=== PATIENT | male | born 2000 | race Caucasian/White ===

== ENCOUNTER 2021-05-23 11:05 | Emergency (ER) | payer OTHER, SELFPAY ==
[2021-05-23 12:01] VITALS: BP 136/64; PULSE 95; RESP 14; TEMP 37.2; O2SAT 99; BMI 20.5
[2021-05-23 12:39] LABS: Strep Scrn Group A (Rapid) Negative (Negative)
--- NOTE | 2021-05-23 12:49 | HMH.EDUTC ---
[facility] [place] Clinical Impression: Pharyngitis Qualifiers: Pharyngitis/tonsillitis etiology: unspecified etiology Qualified Code(s): J02.9 - Acute pharyngitis, unspecified Sinusitis Qualifiers: Sinusitis location: unspecified location Chronicity: acute Recurrence: non-recurrent Qualified Code(s): J01.90 - Acute sinusitis, unspecified Disposition: Home, Self-Care Condition on Discharge: Good Instructions: Sore Throat, DI for Pharyngitis/Tonsillopharyngitis -- Adult, DI for Sinusitis Additional Instructions: Drink plenty of fluids. Take tylenol or ibuprofen for pain or fever. Take the medications as directed. Follow up with your regular doctor. GO TO THE ER FOR ANY WORSENING SYMPTOMS Throw your tooth brush away and get a new one. Prescriptions: Brompheniramine/Pseudoephed/Dm [Bromfed Dm Cough Syrup] 5 ml PO Q6HP PRN #240 ml PRN Reason: Cough Transmission Status: Received by [id number] Amoxicillin [Amoxicillin 500mg Tab] 500 mg PO TID 10 Days #30 tab Transmission Status: Received by [id number] predniSONE [Deltasone 10mg tablet] 10 mg PO BID 3 Days #6 tab Transmission Status: Received by [id number] Referrals: Provider,Referral, MD [Primary Care Provider] - Forms: Work/School Release Time of Disposition: 13:03 Medical Decision Making - Medical Records Medical records reviewed: No: I reviewed the patient's medical records. - Aubrey Inquiry Pt receiving controlled substance: No Vital Signs: 05/23/21 12:01 05/23/21 13:35 Temperature 99 F 99 F Temperature Source Oral Pulse Rate 95 H Pulse Rate [Left] 95 H Respiratory Rate 14 14 Blood Pressure 136/64 Blood Pressure [Right Arm] 136/64 Blood Pressure Mean [Right Arm] 88 02 Sat by Pulse Oximetry 99 - Lab Data Lab results reviewed: Yes: I reviewed the patient's lab results. Lab Results 05/23/21 12:00: Group A Strep Rapid Negative Orders (Tests/Meds): ORDERS Category Date Time Status Strep Screen Confirmation Stat Micro 05/23/21 12:00 [place] [facility] [place] - General Stated complaint: sore throat, cough, fever Time Seen by Provider: 05/23/21 12:49 Mode of Arrival: Ambulatory Source of Information: Patient Limitations: No Limitations Description of Symptoms (Recalled from Triage Doc. by RN): pt c/o a sore throat and fever x2 days. pt was positive for covid last week. HEENT Symptoms (Recalled from RN notes): Yes (sore throat) Resp Symptoms (Recalled from RN notes): No Skin Symptoms (Recalled from RN notes): No MS Symptoms (Recalled from RN notes): No Functional Status (Recalled from RN notes): wnl - History of Present Illness Provider Complaint: He states that for the past 2 days he has had a worsening sore throat, chills, sinus congestion and he has felt bad. He denies fever. He had covid-19 a little over 2 weeks ago and he got completely better from that. He had been vaccinated against covid-19. - Related Data Previous Rx's Medication Instructions Recorded Amoxicillin [Amoxicillin 500mg Tab] 500 mg PO TID 10 Days #30 tab 05/23/21 Brompheniramine/Pseudoephed/Dm 5 ml PO Q6HP PRN #240 ml 05/23/21 [Bromfed Dm Cough Syrup] predniSONE [Deltasone 10mg tablet] 10 mg PO BID 3 Days #6 tab 05/23/21 Allergies Allergy/AdvReac Type Severity Reaction Status Date / Time No Known Allergies Allergy Verified 05/23/21 12:04 - Worker's Comp Is this a Worker's Comp case?: No [facility] [place] History - Hepatitis A Screen Drug use history?: No High risk sexual behaviors?: No History of sexually transmitted infection?: No Currently employed?: No Childcare worker?: No Do you have indoor plumbing?: Yes Do you have electricity?: Yes Attestation statement:: This patient has been screened for Hepatitis A risk factors. I have reviewed the patient's past medical history: Yes ROS Obtained: Yes All systems reviewed & no additional complaints - Constitutional Constitutional: Reports
[2021-05-23 13:35] VITALS: BP 136/64; PULSE 95; RESP 14; TEMP 37.2
== END 2021-05-23 13:36 | disposition home or self-care (01) ==
PROVIDERS: Emergency Provider Nurse Practitioner Family
DX: J01.90 Acute sinusitis, unspecified (principal); J02.9 Acute pharyngitis, unspecified
CPT/HCPCS: 87430; 99203; G0463

== ENCOUNTER → 2021-12-27 13:11 | Outpatient (CLI) | payer OTHER, SELFPAY ==
[2021-12-27 15:18] LABS: Alanine Aminotransferase 83 U/L (12-78); Albumin Level 4.9 g/dl (3.5-5.0); Albumin/Globulin Ratio 1.9 (1.1-1.8); Alkaline Phosphatase 98 U/L (38-126); Aspartate Amino Transferase 52 U/L (17-59); Bilirubin,Total 1.1 mg/dl (0.2-1.3); Blood Urea Nitrogen 11 mg/dl (9-20); Calcium 9.7 mg/dl (8.4-10.2); Carbon Dioxide 29 mmol/L (22.0-30.0); Chloride 103 mmol/L (98-107); Chol/HDL Ratio 3.3 (1-3.5); Cholesterol 154 mg/dl (140-200); Estimated Glomerular Filt Rate 107 ml/min (>60); GFR (African American) 129 ML/MIN (>60); Globulin 2.6 g/dL (1.3-3.2); Glucose 91 mg/dl (74-100); HDL Cholesterol 46 mg/dl (40-60); Sodium 139 mmol/L (136-145); Total Protein,Serum 7.5 g/dl (6.3-8.2); Triglycerides 89 mg/dl (30-150); VLDL Cholesterol 18 mg/dL (0-40)
[2021-12-27 15:29] LABS: Direct LDL Cholesterol 80.98 mg/dL (100-129)
[2021-12-27 15:35] LABS: 25-OH Vitamin D, Total 36.2 ng/mL (30-100); Basophils % 0.8 % (0.1-2.0); Eosinophils # 0.1 K/mm3 (0.0-0.4); Eosinophils % 0.9 % (0.1-12.0); Hematocrit 49.5 % (42.0-52.0); Hemoglobin 16.4 g/dL (14.1-18.0); Lymphocytes # 2.7 K/mm3 (0.7-4.5); Lymphocytes % 52.6 % (10-50); Mean Corpuscular HGB Conc 33.1 g/dL (31.8-35.4); Mean Corpuscular Hemoglobin 31.6 pg (27.0-31.2); Mean Corpuscular Volume 95.4 fl (80-94); Mean Platelet Volume 9.6 fl (7.4-10.4); Monocytes # 0.3 K/mm3 (0.1-1.0); Neutrophils % 39.6 % (37.0-80.0); Platelet Count 255 K/mm3 (142-424); Red Blood Count 5.18 M/mm3 (4.60-6.20); Red Cell Distribution Width 12.1 % (11.5-17.5); White Blood Count 5.1 K/mm3 (4.8-10.8)
[2021-12-27 15:36] LABS: Free Thyroxine Index 2.4 ug/dL (5.93-13.13); T4 (Thyroxine) 7.9 ug/dl (5.53-11.0); Triiodothryronine (T3) Uptake 31 % (23.5-40.5)
[2021-12-27 15:38] LABS: MANUAL DIFFERENTIAL MANUAL DIFFERENTIAL (MANUAL DIFF)
[2021-12-27 16:06] LABS: Vitamin B12 429 pg/mL (239-931)
[2021-12-27 18:06] LABS: Lymphocytes % 51 % (10-50); Monocytes % 4 % (2-9); Neutrophils % 45 % (42-76); Platelet Estimate Normal; RBC Morphology Normal; Total Cells Counted 100
[2022-01-01 22:07] LABS: Testosterone, Total, LC/MS 651.4 ng/dL (264.0-916.0); Testosterone,Free 19.6 pg/mL (9.3-26.5)
== END ==
PROVIDERS: PCP Internal Medicine Adolescent Medicine; Visit Provider Internal Medicine Adolescent Medicine
DX: R94.6 Abnormal results of thyroid function studies (principal); R53.81 Other malaise; R53.83 Other fatigue
CPT/HCPCS: 36415; 80053; 80061; 82306; 82607; 84402; 84403; 84436; 84443; 84479; 85007; 85025

== ENCOUNTER 2022-10-04 18:05 | Emergency (ER) | payer OTHER, SELFPAY ==
[2022-10-04 18:07] VITALS: BP 133/78; PULSE 124; RESP 18; TEMP 36.7; O2SAT 100; BMI 18.4
--- NOTE | 2022-10-04 18:15 | EXP.UTC ---
Discharge Plan Disposition Patient Disposition: Home, Self-Care Condition: Good Prescriptions Prescriptions: New diphenhydramine HCl [Diphenhydramine HCl] 25 mg capsule 25 mg PO Q6HP PRN (Reason: Itching) Qty: 30 0RF triamcinolone acetonide 0.1 % cream 1 applic topical BID PRN (Reason: itching) Qty: 30 0RF methylprednisolone 4 mg Tablets,Dose Pack 4 mg PO DIRECTED Qty: 21 0RF No Action vilazodone [Viibryd] 40 mg tablet 40 mg PO DAILY Qty: 30 1RF Rx Instructions: must administer with a meal/food atomoxetine [Strattera] 40 mg capsule 40 mg PO DAILY Qty: 30 1RF Referrals Follow up/Referrals: Howard Bucio MD [Primary Care Provider] - See instructions Activity Restrictions/Add. Instructions Additional Instructions/Restrictions: Try to identify and avoid contact with the offending substance. Don't start the oral steroids until tomorrow. The diphenhydramine (benedryl) will make you drowsy, so don't drive or operate heavy machinery after taking it. Don't put the topical steroids (triamcinolone) on your face or your groin. Follow up with your regular doctor. GO TO THE ER FOR ANY WORSENING SYMPTOMS OR CONCERNS Clinical Impressions Clinical Impression: Allergic reaction Instructions Patient Instructions: DI for General Allergic Reactions Discharge ED Provider: Francisco Scanlon [facility] General Stated complaint: poss allergic reaction Time Seen by Provider: 10/04/22 18:15 History of Present Illness Provider Complaint: He states that he has had a generalized rash since yesterday. He denies any contact with known allergens (such as poison kenisha). He has used a new body wash that he thinks may have caused his symptoms. He denies any swelling of his lips or mouth. He denies any shortness of breath and/or chest pain. Related Data Previous Rx's Medication Instructions Recorded vilazodone 40 mg tablet (Viibryd) 40 mg PO DAILY #30 tabs 01/08/22 atomoxetine 40 mg capsule 40 mg PO DAILY #30 caps 08/28/22 (Strattera) diphenhydramine HCl 25 mg capsule 25 mg PO Q6HP PRN Itching #30 caps 10/04/22 methylprednisolone 4 mg tablets in 4 mg PO DIRECTED #21 tabs 10/04/22 a dose pack triamcinolone acetonide 0.1 % 1 applic topical BID PRN itching 10/04/22 topical cream #30 grams Allergies Allergy/AdvReac Type Severity Reaction Status Date / Time No Known Allergies Allergy Verified 05/09/22 10:41 [facility] Disclaimer: The information contained in this section may have been updated after the patient was seen, as this information can be updated by other users. Medical History Attention deficit disorder (ADD) in adult Generalized anxiety disorder Social History Smoking Status: Never smoker alcohol intake: current substance use type: denies use current occupational status: employed Travel in the last 8 weeks: None number of children: 0 ROS Obtained: Yes All systems reviewed & no additional complaints except as documented Constitutional Constitutional: Denies chills and Denies fever(s) Eyes Eyes: Denies eye discharge ENT Ears, Nose, Mouth, and Throat: Denies dizziness, Denies otalgia and Denies sore throat Cardiovascular Cardiovascular: Denies chest pain Respiratory Respiratory: Denies shortness of breath, Denies chest congestion, Denies cough, Denies stridor and Denies wheezing Gastrointestinal Gastrointestingal: Denies nausea or vomiting Musculoskeletal Musculoskeletal: Reports system reviewed and no additional complaints, except as documented and Denies arthralgias Integumentary/Breasts Skin/Breast: Reports as per HPI, Denies redness, Reports rash and Denies wounds Neurologic Neurologic: Denies dizziness and Denies paresthesias Allergic/Immunologic Allergic/Immunologic: Denies wheezing Physical Exam General General appearance: alert and i
[2022-10-04 18:43] VITALS: BP 133/78; PULSE 124; RESP 18; TEMP 36.7; O2SAT 100
== END 2022-10-04 18:44 | disposition home or self-care (01) ==
PROVIDERS: Emergency Provider Nurse Practitioner Family; PCP Internal Medicine Adolescent Medicine
DX: T78.40XA Allergy, unspecified, initial encounter (principal); R21 Rash and other nonspecific skin eruption; F41.1 Generalized anxiety disorder; F90.9 Attention-deficit hyperactivity disorder, unspecified type
CPT/HCPCS: 96372; 99212; 99214; G0463

== ENCOUNTER → 2022-11-24 18:50 | Outpatient (CLI) | payer OTHER, SELFPAY ==
[2022-11-24 19:14] VITALS: BMI 16.1
== END ==
PROVIDERS: PCP Internal Medicine Adolescent Medicine; Visit Provider Nurse Practitioner
DX: Z11.1 Encounter for screening for respiratory tuberculosis (principal)
CPT/HCPCS: 86580

== ENCOUNTER → 2022-12-11 12:11 | Outpatient (CLI) | payer OTHER, SELFPAY ==
[2022-12-11 13:23] LABS: Free T4 (Free Thyroxine) 1.07 ng/dl (0.78-2.19)
[2022-12-11 13:35] LABS: Thyroid Stimulating Hormone 0.98 uIU/mL (0.465-4.68)
[2022-12-14 11:25] LABS: Antinuclear Antibodies (ANA) NEGATIVE
== END ==
PROVIDERS: PCP Internal Medicine Adolescent Medicine; Visit Provider Internal Medicine
DX: E03.9 Hypothyroidism, unspecified (principal); D89.89 Other specified disorders involving the immune mechanism, not elsewhere classified
CPT/HCPCS: 36415; 84439; 84443; 86038

== ENCOUNTER → 2022-12-25 16:14 | Outpatient (CLI) | payer OTHER, SELFPAY ==
[2022-12-25 16:28] LABS: Microscopic, Urine URINE MICROSCOPIC (MICROSCOPIC)
[2022-12-25 16:46] LABS: Appearance,Urine CLEAR (Clear); Blood, Urine Negative (Negative); Color,Urine YELLOW (Yellow); Glucose,Urine (UA) Negative (Negative); Ketones,Urine 3+ (Negative); Leukocyte Esterase,Urine Negative (Negative); Nitrate,Urine Negative (Negative); Protein,Urine Negative (Negative); Specific Gravity, Urine 1.025 (1.005-1.030); Urobilinogen,Urine 0.2 EU/dl (0.2)
[2022-12-25 16:55] LABS: Bilirubin,Urine Negative (Negative)
[2022-12-25 17:04] LABS: Mucus,Urine 2+ /lpf; Squamous Epithelial Cell,Urine Occasional #/hpf (0-5); WBC,Urine Occasional #/hpf (0-3)
== END ==
PROVIDERS: Nurse Practitioner; PCP Internal Medicine; Visit Provider Internal Medicine
DX: M54.50 Low back pain, unspecified (principal)
CPT/HCPCS: 81001

== ENCOUNTER → 2022-12-27 09:22 | Outpatient (CLI) | payer OTHER, SELFPAY ==
--- NOTE | 2022-12-27 09:26 | XR_ITS ---
PROCEDURE INFORMATION: Exam: XR Entire Spine Exam date and time: 12/27/2022 9:27 AM Age: 22 years old Clinical indication: Low back pain; Additional info: Patient reports HX of being told he has scoliosis TECHNIQUE: Imaging protocol: XR of the entire spine. Evaluation for scoliosis or surgical evaluation. Views: 2 or 3 views. COMPARISON: No relevant prior studies available. FINDINGS: Bones/joints: There is a 16 degree dextroscoliosis of the thoracic spine centered at T4 and a 24 degree levoscoliosis of the thoracic spine centered at T10. A compensatory 14 degree dextroconvex curvature of the lumbar spine centered at L4 is noted. 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
== END ==
PROVIDERS: PCP Internal Medicine; Visit Provider Internal Medicine
DX: Z13.828 Encounter for screening for other musculoskeletal disorder (principal); Z87.39 Personal history of other diseases of the musculoskeletal system and connective tissue; G43.909 Migraine, unspecified, not intractable, without status migrainosus; M41.86 Other forms of scoliosis, lumbar region
CPT/HCPCS: 72081

== ENCOUNTER → 2022-12-30 12:25 | Outpatient (CLI) | payer OTHER, SELFPAY ==
[2022-12-30 13:49] VITALS: BMI 20.8
== END ==
PROVIDERS: PCP Internal Medicine; Visit Provider Internal Medicine
DX: R63.6 Underweight (principal); Z68.1 Body mass index [BMI] 19.9 or less, adult
CPT/HCPCS: 97802

== ENCOUNTER → 2023-01-10 08:59 | Outpatient (CLI) | payer OTHER, SELFPAY ==
[2023-01-12 13:52] LABS: Tissue Transglutaminase IgA Ab <2 U/mL (0-3); Tissue Transglutaminase IgG Ab <2 U/mL (0-5)
== END ==
PROVIDERS: PCP Internal Medicine; Visit Provider Internal Medicine
DX: K90.0 Celiac disease (principal)
CPT/HCPCS: 36415; 83516

== ENCOUNTER 2023-01-20 09:00 | Outpatient (RCR) | payer OTHER, SELFPAY ==
--- NOTE | 2023-01-07 10:57 | HMH.PTOPEV ---
PT Outpatient Evaluation Rehab PT Outpatient Evaluation Start: 01/07/23 10:06 Freq: Status: Active Protocol: Document 01/07/23 10:40 MAINLAMAR (Rec: 01/07/23 10:56 ALEX [id number]) E-signed By Akhil Ortega, PT Outpatient Therapy Subjective History Subjective History Patient is a 22 year old male presenting to outpatient PT with reports of chronic LBP with acute exacerbation starting approx 2 weeks ago. Most recent imaging indicates dectroscoliosis of the thoracic spine and levoscoliosis of the lumbar spine. Most recent exacerbation occurred after an episode of tubing behind a boat. LS >TS. L>R. No other comorbidities to report. New diagnosis of cancer in past 12 No months? Chief Complaint Pain,Spasms,Stiff Symptom Type Sharp Symptoms Relieved By Rest/Positioning,Heat Symptoms Aggravated By Standing,Bending/Stooping, Physical Activity,Walking, Lifting Prior Functional Limitations None Current Functional Limitations Lifting,Housework,Standing, Recreation Activity,Walking, Bending/Stooping Symptom Description Intermittent Level of pain today (0-10) 2 Pain scale - at its best (0-10) 0 Pain scale - at its worst (0-10) 8 Lumbopelvic Eval Posture Thoracic Spine Posture Standing Position Flexible Scoliosis on (L) Lumbar Spine Posture Standing Position Flexible Scoliosis on (R) Assistive device Assistive Devices None / NA Palapation tenderness left paraspinal tenderness Yes: lumbar spine 2/4 Range of Motion Lumbar Spine Active Flexion Range of 62 Motion (degrees) Lumbar Spine Active Extension Range of 12 Motion (degrees) Left Lumbar Spine Lateral Flexion Active 20 Range of Motion (degrees) Right Lumbar Spine Lateral Flexion 25 Active Range of Motion (degrees) Lumbar Spine ROM Limitations Soft Tissue Tightness,Bony Restriction Manual Muscle Test Bilateral Knee Extension Strength Grade 5 Normal Knee Flexion Strength Grade 5 Normal Hip Flexion Strength Grade 5 Normal Ankle Dorsiflexion Strength Grade 5 Normal Gastronemius/Soleus Strength Grade 5 Normal Special Tests Lumbar Spine Screen Positive Hip Farooq (JORGE L) Test Negative Left,Negative Righ
== END 2023-01-20 09:05 | disposition home or self-care (01) ==
LOC: PT 09:00
PROVIDERS: PCP Internal Medicine; Visit Provider Internal Medicine
DX: M41.9 Scoliosis, unspecified (principal); M54.50 Low back pain, unspecified
CPT/HCPCS: 97110; 97163; 97530; 97535

== ENCOUNTER → 2023-03-06 12:32 | Outpatient (CLI) | payer OTHER, SELFPAY ==
[2023-03-06 14:16] LABS: Free T4 (Free Thyroxine) 1.03 ng/dl (0.78-2.19)
[2023-03-06 14:29] LABS: Thyroid Stimulating Hormone 1.12 uIU/mL (0.465-4.68)
== END ==
PROVIDERS: PCP Internal Medicine; Visit Provider Internal Medicine
DX: E03.9 Hypothyroidism, unspecified (principal)
CPT/HCPCS: 36415; 84439; 84443

== ENCOUNTER 2023-03-26 12:24 | Emergency (ER) | payer OTHER, SELFPAY ==
[2023-03-26 12:25] VITALS: BP 150/90; PULSE 120; RESP 18; TEMP 37.2; O2SAT 98; BMI 17.2
--- NOTE | 2023-03-26 12:42 | EXP.UTC ---
Discharge Plan Disposition Patient Disposition: Home, Self-Care Prescriptions Prescriptions: New ondansetron 4 mg Tablet,Disintegrating 4 mg PO Q8H PRN (Reason: Nausea) Qty: 20 0RF No Action Qelbree 100 mg capsule,extended release 24hr 100 mg PO DAILY Qty: 30 2RF Rx Instructions: Take 1 Cap PO QD. DX F90.9 Qulipta 60 mg tablet 60 mg PO DAILY Patient Comments: TAKE ONE TABLET BY MOUTH EVERY DAY Nurtec ODT 75 mg tablet,disintegrating 75 mg PO Q OTHER DAY Referrals Follow up/Referrals: Gerardo Landaverde DO [Primary Care Provider] - See instructions Activity Restrictions/Add. Instructions Additional Instructions/Restrictions: Drink plenty of fluids. Rest as much as possible for the next few days. Take tylenol or ibuprofen for the pain you are having. Take the zofran (ondesetron) for the nausea you are having. Follow up with your regular doctor. GO TO THE ER FOR ANY WORSENING SYMPTOMS Clinical Impressions Clinical Impression: Medication side effect Stand Alone Forms Stand Alone Forms: Work/School Release Instructions Patient Instructions: Ondansetron Discharge ED Provider: Francisco Scanlon [facility] General Stated complaint: stomach pain, nausea, weakness Time Seen by Provider: 03/26/23 12:42 History of Present Illness Provider Complaint: He states that he stopped Vraylar medication 4 days ago. Over the past 2 days he has had nausea, muscle aches and increased anxiety. He stopped the medication because it was causing him to be too drowsy. He denies any SI and HI. Related Data Home Medications Medication Instructions Recorded Confirmed atogepant 60 mg tablet (Qulipta) 60 mg PO DAILY 03/26/23 03/26/23 rimegepant 75 mg disintegrating 75 mg PO Q OTHER DAY 03/26/23 03/26/23 tablet (Nurtec ODT) Previous Rx's Medication Instructions Recorded viloxazine 100 mg capsule,extended 100 mg PO DAILY #30 caps 02/27/23 release 24 hr (Qelbree) ondansetron 4 mg disintegrating 4 mg PO Q8H PRN Nausea #20 tabs 03/26/23 tablet Allergies Allergy/AdvReac Type Severity Reaction Status Date / Time Penicillins Allergy Verified 03/26/23 12:43 singulair Allergy Intermediate Hives Uncoded 03/06/23 10:34 [facility] Disclaimer: The information contained in this section may have been updated after the patient was seen, as this information can be updated by other users. Medical History Attention deficit disorder (ADD) in adult Generalized anxiety disorder Family History Mother Degenerative disc disease Social History Smoking Status: Never smoker alcohol intake: current substance use type: denies use current occupational status: employed Travel in the last 8 weeks: Inside the [place] number of children: 0 ROS Obtained: Yes All systems reviewed & no additional complaints except as documented Constitutional Constitutional: Denies chills and Denies fever(s) Eyes Eyes: Denies eye discharge ENT Ears, Nose, Mouth, and Throat: Denies dizziness, Denies otalgia and Denies sore throat Cardiovascular Cardiovascular: Denies chest pain Respiratory Respiratory: Denies shortness of breath, Denies chest congestion, Denies cough, Denies stridor and Denies wheezing Gastrointestinal Gastrointestingal: Denies abdominal pain, constipation, cramping, diarrhea, nausea or vomiting Musculoskeletal Musculoskeletal: Reports system reviewed and no additional complaints, except as documented and Denies arthralgias Integumentary/Breasts Skin/Breast: Denies rash Neurologic Neurologic: Denies dizziness and Denies paresthesias Allergic/Immunologic Allergic/Immunologic: Denies wheezing Physical Exam General General appearance: alert and in no apparent distress Head Head exam: atraumatic, normocephalic a
[2023-03-26 13:20] VITALS: BP 150/90; PULSE 120; RESP 18; TEMP 37.2; O2SAT 98
== END 2023-03-26 13:20 | disposition home or self-care (01) ==
PROVIDERS: Emergency Provider Nurse Practitioner Family; PCP Internal Medicine
DX: T88.7XXA Unspecified adverse effect of drug or medicament, initial encounter (principal)
CPT/HCPCS: 99212; 99214; G0463

== ENCOUNTER 2023-04-19 14:05 | Emergency (ER) | payer OTHER, SELFPAY ==
[2023-04-19 14:20] VITALS: BP 123/74; PULSE 112; RESP 18; TEMP 36.9; O2SAT 100; BMI 17.2
--- NOTE | 2023-04-19 14:32 | ED_ITS ---
Discharge Plan Disposition Patient Disposition: Home, Self-Care Condition: Good Prescriptions Prescriptions: New doxycycline hyclate [doxycycline hyclate] 100 mg capsule 100 mg PO Q12 10 Days Qty: 20 0RF No Action escitalopram oxalate 10 mg tablet 10 mg PO DAILY Qty: 53 2RF prochlorperazine maleate 5 mg tablet 5 mg PO TID PRN (Reason: anxiety) Qty: 30 0RF Qelbree 100 mg capsule,extended release 24hr 100 mg PO DAILY Qty: 30 2RF Rx Instructions: Take 1 Cap PO QD. DX F90.9 Qulipta 60 mg tablet 60 mg PO DAILY Patient Comments: TAKE ONE TABLET BY MOUTH EVERY DAY Nurtec ODT 75 mg tablet,disintegrating 75 mg PO Q OTHER DAY Referrals Follow up/Referrals: Gerardo Landaverde DO [Primary Care Provider] - See instructions Activity Restrictions/Add. Instructions Additional Instructions/Restrictions: Drink plenty of fluids. Take tylenol for pain or fever. Take the medications as directed. Follow up with your regular doctor. GO TO THE ER FOR ANY WORSENING SYMPTOMS Clinical Impressions Clinical Impression: Urethritis Instructions Patient Instructions: Urethritis, DI for Urethritis, Doxycycline Discharge ED Provider: Francisco Scanlon [facility] General Stated complaint: suspected uti Time Seen by Provider: 04/19/23 14:32 History of Present Illness Provider Complaint: He states that he has had recurrent urethritis over the past 1 month. He has had negative sti test. Related Data Home Medications Medication Instructions Recorded Confirmed atogepant 60 mg tablet (Qulipta) 60 mg PO DAILY 03/26/23 04/19/23 rimegepant 75 mg disintegrating 75 mg PO Q OTHER DAY 03/26/23 04/19/23 tablet (Nurtec ODT) Previous Rx's Medication Instructions Recorded viloxazine 100 mg capsule,extended 100 mg PO DAILY #30 caps 02/27/23 release 24 hr (Qelbree) escitalopram oxalate 10 mg tablet 10 mg PO DAILY #53 tabs 03/31/23 prochlorperazine maleate 5 mg 5 mg PO TID PRN anxiety #30 tabs 03/31/23 tablet doxycycline hyclate 100 mg capsule 100 mg PO Q12 10 days #20 caps 04/19/23 Allergies Allergy/AdvReac Type Severity Reaction Status Date / Time Penicillins Allergy Verified 04/19/23 14:39 cariprazine [From Vraylar] AdvReac Severe Chest Pain Verified 04/19/23 14:39 singulair Allergy Intermediate Hives Uncoded 03/31/23 10:53 [facility] Disclaimer: The information contained in this section may have been updated after the patient was seen, as this information can be updated by other users. Medical History Attention deficit disorder (ADD) in adult Generalized anxiety disorder Family History Mother Degenerative disc disease Social History Smoking Status: Never smoker alcohol intake: current substance use type: denies use current occupational status: employed Travel in the last 8 weeks: [place] the [place] number of children: 0 ROS Obtained: Yes All systems reviewed & no additional complaints except as documented Constitutional Constitutional: Denies chills and Denies fever(s) Eyes Eyes: Denies eye discharge ENT Ears, Nose, Mouth, and Throat: Denies dizziness, Denies otalgia and Denies sore throat Cardiovascular Cardiovascular: Denies chest pain Respiratory Respiratory: Denies shortness of breath, Denies chest congestion, Denies cough, Denies stridor and Denies wheezing Gastrointestinal Gastrointestingal: Denies nausea or vomiting Genitourinary Male Genitourinary: Reports as per HPI, Denies hematuria and Denies testicular pain Musculoskeletal Musculoskeletal: Reports system reviewed and no additional complaints, except as documented and Denies arthralgias Integumentary/Breasts Skin/Breast: Denies rash Neurologic Neurologic: Denies dizziness and Denies paresthesias Allergic/Immunologic Allergic/Immunologic: Denies wheezing Physical Exam General General appearance: alert and in no apparent distress Head Head exam: atraumatic, normocephalic and normal inspection Eye Eye exam: Present normal appearance, PERRL and EOMI ENT ENT exam: Present normal exam, normal oropharynx, mucous membranes moist, TM's normal bilaterally and normal external ear exam Neck Neck exam: Present normal inspection, full ROM and trachea midline; Absent meningismus or lymphadenopathy Chest Chest inspection: Present normal inspection and symmetric chest wall rise; Absent tenderness Respiratory Respiratory exam: Present normal lung sounds bilaterally; Absent respiratory distress Cardiovascular Cardiovascular exam: Present regular rate and normal rhythm; Absent JVD Abdominal Exam Abdominal exam: Present soft and normal bowel sounds; Absent distention, tenderness or guarding Extremities Exam Extremities exam: Present normal inspection, full ROM and normal capillary refill; Absent calf tenderness Back Exam Back exam: Present normal inspection; Absent tenderness Neurological Exam Neurological exam: Present alert and oriented X3 Psychiatric Psychiatric exam: Present normal affect and normal mood Skin Skin exam: Present warm, dry, intact and normal color Lymphatic Lymphatic Findings: no adenopathy Medical Decision Making Medical Records Medical records reviewed: No I reviewed the patient's medical records. Aubrey Inquiry Pt receiving controlled substance: No Lab Data Lab results reviewed: Yes I reviewed the patient's lab results. Orders (Tests/Meds): ORDERS Category Date Time Status Urine Culture Stat Micro 04/19/23 14:24 Ordered
[2023-04-19 14:41] LABS: Apearance,Urine Slightly Cloudy (Clear); Bilirubin,Urine 1+ (Negative); Blood, Urine Trace (Negative); Color,Urine Dark Yellow (Yellow); Glucose,Urine (UA) Negative (Negative); Ketones,Urine Negative (Negative); Protein,Urine 1+ (Negative); UTC Leukocyte Esterase,Urine Negative (Negative); UTC Nitrate,Urine Negative (Negative); Urobilinogen,Urine 1 EU/dl (0.2)
[2023-04-19 14:59] VITALS: BP 123/74; PULSE 112; RESP 18; TEMP 36.9; O2SAT 100
== END 2023-04-19 14:40 | disposition home or self-care (01) ==
PROVIDERS: Emergency Provider Nurse Practitioner Family; PCP Internal Medicine
DX: N34.2 Other urethritis (principal)
CPT/HCPCS: 81003; 87086; 99212; 99214; G0463

== ENCOUNTER 2023-06-15 19:49 | Emergency (ER) | payer OTHER, SELFPAY ==
[2023-06-15] VITALS (9 sets, daily range): BP systolic 113–126; BP diastolic 68–75; PULSE 85–112; RESP 17–20; TEMP 36.5–36.6; O2SAT 99–100; BMI 16.7
--- NOTE | 2023-06-15 20:36 | ED_ITS ---
I was consulted by the BRISEYDA, and we discussed the complexity of the problems being addressed. I approved the treatment and management plan for this patient's care in the emergency department, thus performing a substantive portion of the medical decision making. Tricia Kiser MD, BERONICA, FACE Discharge Plan Disposition Patient Disposition: Home, Self-Care Condition: Good Chief Complaint: Nausea/Vomiting/Diarrhea Prescriptions Prescriptions: No Action Qulipta 60 mg tablet 60 mg PO DAILY prochlorperazine maleate 5 mg tablet 5 mg PO TID PRN (Reason: anxiety) Qty: 30 3RF escitalopram oxalate 10 mg tablet 20 mg PO DAILY Qty: 90 0RF cyproheptadine 4 mg tablet 4 mg PO HS Qty: 30 0RF Jornay PM 20 mg capsule,del rel,ext rel sprink 20 mg PO HS Qty: 30 0RF Nurtec ODT 75 mg tablet,disintegrating 75 mg PO ONCE PRN nystatin 100,000 unit/gram cream 1 applic topical BID Qty: 15 0RF clotrimazole 1 % cream 1 applic topical BID 14 Days Qty: 15 0RF Referrals Follow up/Referrals: Gerardo Landaverde DO [Primary Care Provider] - See instructions Activity Restrictions/Add. Instructions Additional Instructions/Restrictions: I have called in a prescription for Zofran. If your symptoms recur please try to get evaluation of your vital signs at the time. If your symptoms worsen return to the ER as needed or follow-up with your PCP. Clinical Impressions Clinical Impression: Episodic lightheadedness Nausea & vomiting Qualifiers: Vomiting type: unspecified Qualified Code(s): R11.2 - Nausea with vomiting, unspecified Discharge ED Provider: Tricia Kiser General Adult HPI <VALORIE Ryan - Last Filed: 06/15/23 22:19> General Chief complaint: Nausea/Vomiting/Diarrhea Stated complaint: vomiting Time Seen by Provider: 06/15/23 20:35 Mode of Arrival: Ambulatory Source of Information: Patient Limitations: No Limitations Description of Symptoms (Recalled from ER Triage Doc. by RN): Patient reports to ED with vomiting that started about 1 hour ago. Patient states he vomited x3 times. Patient states he had an episode on thursday as well. Patient denies fever or pain anywhere. History of Present Illness HPI narrative: Patient presents initially with a chief complaint of lightheadedness followed by nausea then followed by nausea. This episode happened Thursday without any provoking factors. It resolved on its own. Patient reports that he has had another episode today of feeling lightheaded and followed by vomiting 3 times. Patient denies fever chest pain shortness of breath hemoptysis hematochezia melena. Related Data Home Medications Medication Instructions Recorded Confirmed atogepant 60 mg tablet (Qulipta) 60 mg PO DAILY 05/12/23 rimegepant 75 mg disintegrating 75 mg PO ONCE PRN 05/12/23 05/12/23 tablet (Nurtec ODT) Previous Rx's Medication Instructions Recorded nystatin 100,000 unit/gram topical 1 applic topical BID #15 grams 04/28/23 cream prochlorperazine maleate 5 mg 5 mg PO TID PRN anxiety #30 tabs 05/12/23 tablet escitalopram oxalate 10 mg tablet 20 mg PO DAILY #90 tabs 05/20/23 cyproheptadine 4 mg tablet 4 mg PO HS #30 tabs 05/22/23 clotrimazole 1 % topical cream 1 applic topical BID 2 weeks #15 05/26/23 grams methylphenidate HCl 20 mg 20 mg PO HS #30 ea 06/01/23 capsule,delayed release,ext release sprinkle (Paloma PM) Allergies Allergy/AdvReac Type Severity Reaction Status Date / Time Penicillins Allergy Verified 05/12/23 14:30 cariprazine [From Vraylar] AdvReac Severe Chest Pain Verified 05/12/23 14:30 singulair Allergy Intermediate Hives Uncoded 05/12/23 14:30 [facility] <VALORIE Ryan - Last Filed: 06/15/23 22:19> [facility] Disclaimer: The information contained in this section may have been updated after the patient was seen, as this information can be updated by other users. Medical History Attention deficit disorder (ADD) in adult Generalized anxiety disorder Family History Mother Degenerative disc disease Social History Smoking Status: Current every day smoker alcohol intake: current substance use type: denies use current occupational status: employed Travel in the last 8 weeks: Inside the [place] number of children: 0 <VALORIE Ryan - Last Filed: 06/15/23 22:19> ROS Obtained: Yes Systems reviewed as appropriate & no additional complaints except as documented Physical Exam <VALORIE Ryan - Last Filed: 06/15/23 22:19> General General appearance: alert and in no apparent distress Head Head exam: atraumatic and normal inspection Eye Eye exam: Present normal appearance, PERRL and EOMI ENT ENT exam: Present normal exam, normal oropharynx and mucous membranes moist Neck Neck exam: Present normal inspection, full ROM and trachea midline; Absent lymphadenopathy Chest Chest inspection: Present normal inspection and symmetric chest wall rise Respiratory Respiratory exam: Present normal lung sounds bilaterally; Absent accessory muscle use Cardiovascular Cardiovascular exam: Present regular rate, normal rhythm, normal heart sounds, +S1 and +S2 Abdominal Exam Abdominal exam: Present soft and normal bowel sounds; Absent tenderness, guarding or rebound Extremities Exam Extremities exam: Present normal inspection and full ROM Neurological Exam Neurological exam: Present alert, oriented X3 and CN II-XII intact Psychiatric Psychiatric exam: Present normal affect and normal mood Skin Skin exam: Present warm, dry and normal color Lymphatic Lymphatic Findings: no adenopathy Medical Decision Making <VALORIE Ryan - Last Filed: 06/15/23 22:19> Medical Records Medical records reviewed: Yes I reviewed the patient's medical records. Aubrey Inquiry Pt receiving controlled substance: No Vital Signs: 06/15/23 19:49 06/15/23 20:00 06/15/23 20:30 Temperature 97.7 F Temperature Source Oral Pulse Rate 105 H 109 H Pulse Rate [Right Radial] 112 H Respiratory Rate 20 Blood Pressure 113/68 118/70 Blood Pressure [Right Arm] 123/73 Blood Pressure Mean 78 79 Blood Pressure Mean [Right Arm] 89 Blood Pressure Source [Right Arm] Automatic Cuff Blood Pressure Position [Right Arm] Supine 02 Sat by Pulse Oximetry 100 100 100 Oxygen Delivery Method Room Air 06/15/23 21:00 06/15/23 21:30 Temperature Temperature Source Pulse Rate 85 89 Pulse Rate [Right Radial] Respiratory Rate Blood Pressure 121/75 117/74 Blood Pressure [Right Arm] Blood Pressure Mean 85 87 Blood Pressure Mean [Right Arm] Blood Pressure Source [Right Arm] Blood Pressure Position [Right Arm] 02 Sat by Pulse Oximetry 100 100 Oxygen Delivery Method Lab Data Lab results reviewed: Yes I reviewed the patient's lab results. Lab Results 06/15/23 20:00: WBC 8.0, RBC 4.76, Hgb 15.5, Hct 46.1, MCV 96.9 H, MCH 32.6 H, MCHC 33.7, RDW 12.9, Plt Count 277, MPV 8.4, Neut % (Auto) 66.3, Lymph % (Auto) 29.1, [place] % (Auto) 3.7, Eos % (Auto) 0.4, Baso % (Auto) 0.5, Neut # (Auto) 5.3, Lymph # (Auto) 2.3, [place] # (Auto) 0.3, Eos # (Auto) 0.0, Baso # (Auto) 0.0, Sodium 140, Potassium 3.6, Chloride 104, Carbon Dioxide 28, Anion Gap 11.6, BUN 8 L, Creatinine 0.80, Estimated Creat Clear 111, Estimated GFR 120, Est GFR ( Amer) 145, Glucose 112 H, Calcium 9.6, Phosphorus 3.3, Magnesium 1.7, Total Bilirubin 1.0, AST 60 H, ALT 108 H, Alkaline Phosphatase 89, Total Protein 7.4, Albumin 4.9, Globulin 2.5, Albumin/Globulin Ratio 2.0 H 06/15/23 20:00 06/15/23 20:00 Orders (Tests/Meds): ED MEDICATIONS Generic Name Dose Route Start Last Admin Trade Name Freq PRN Reason Stop Dose Admin Lactated Ringer's 1,000 mls @ 999 mls/hr 06/15/23 21:10 06/15/23 21:20 Lactated Ringer's 1000 Ml Bag IV 06/15/23 22:10 999 mls/hr .Q1H1M ONE Administration Discontinued Medications Generic Name Dose Route Start Last Admin Trade Name Freq PRN Reason Stop Dose Admin Ondansetron HCl 4 mg 06/15/23 21:10 06/15/23 21:23 Ondansetron 4mg Odt SL 06/15/23 21:11 Not Given ONCE ONE Ondansetron HCl 4 mg 06/15/23 21:17 06/15/23 21:20 Ondansetron 4mg/2ml Vial IV 06/15/23 21:18 4 mg ONCE ONE Administration ORDERS Category Date Time Status CBC w/Auto Diff [Complete Blood Count Auto Diff] Stat Lab 06/15/23 20:00 Completed CMP [Comprehensive Metabolic Panel] Stat Lab 06/15/23 20:00 Completed Magnesium Stat Lab 06/15/23 20:00 Completed Phosphorous Stat Lab 06/15/23 20:00 Completed EKG Request [ECG Request] Stat Y 06/15/23 21:10 Ordered Medical Decision Narrative: In summary patient is a 23-year-old male who presents to the emergency department for evaluation of lightheadedness and vomiting. Patient is sinus tachycardic but normotensive on arrival but afebrile. Physical exam is unremarkable and nonfocal. Patient has normal auscultation of the heart sounds and EKG shows sinus rhythm on the monitor. Patient is bilateral tympanic exam is normal. Patient has no focal neurologic findings and GCS is 15. Cranial nerve exam is normal. Patient ambulates without ataxia. Differential diagnosis includes near syncope, hypoglycemia, cardiac arrhythmia, gastroenteritis etc. Initial workup will be conducted with otologic labs EKG. Initial interventions include antiemetics Tylenol Toradol. Initial workup reviewed by me shows normal hematologic labs and a normal EKG.. Upon repeat evaluation patient reports improvement in his nausea after administration of Zofran. Given this appropriate for discharge home with a prescription for Zofran. It is important to note that the patient has had no diarrhea although that was part of his initial triage evaluation. Patient to follow-up with PCP if recurrence of symptoms or return to the emergency department. Via shared decision making patient is agreeable to the plan. <Tricia Kiser MD - Last Filed: 06/15/23 22:10> Vital Signs: 06/15/23 19:49 06/15/23 20:00 06/15/23 20:30 Temperature 97.7 F Temperature Source Oral Pulse Rate 105 H 109 H Pulse Rate [Right Radial] 112 H Respiratory Rate 20 Blood Pressure 113/68 118/70 Blood Pressure [Right Arm] 123/73 Blood Pressure Mean 78 79 Blood Pressure Mean [Right Arm] 89 Blood Pressure Source [Right Arm] Automatic Cuff Blood Pressure Position [Right Arm] Supine 02 Sat by Pulse Oximetry 100 100 100 Oxygen Delivery Method Room Air 06/15/23 21:00 06/15/23 21:30 Temperature Temperature Source Pulse Rate 85 89 Pulse Rate [Right Radial] Respiratory Rate Blood Pressure 121/75 117/74 Blood Pressure [Right Arm] Blood Pressure Mean 85 87 Blood Pressure Mean [Right Arm] Blood Pressure Source [Right Arm] Blood Pressure Position [Right Arm] 02 Sat by Pulse Oximetry 100 100 Oxygen Delivery Method Lab Data Lab Results 06/15/23 20:00: WBC 8.0, RBC 4.76, Hgb 15.5, Hct 46.1, MCV 96.9 H, MCH 32.6 H, MCHC 33.7, RDW 12.9, Plt Count 277, MPV 8.4, Neut % (Auto) 66.3, Lymph % (Auto) 29.1, [place] % (Auto) 3.7, Eos % (Auto) 0.4, Baso % (Auto) 0.5, Neut # (Auto) 5.3, Lymph # (Auto) 2.3, [place] # (Auto) 0.3, Eos # (Auto) 0.0, Baso # (Auto) 0.0, Sodium 140, Potassium 3.6, Chloride 104, Carbon Dioxide 28, Anion Gap 11.6, BUN 8 L, Creatinine 0.80, Estimated Creat Clear 111, Estimated GFR 120, Est GFR ( Amer) 145, Glucose 112 H, Calcium 9.6, Phosphorus 3.3, Magnesium 1.7, Total Bilirubin 1.0, AST 60 H, ALT 108 H, Alkaline Phosphatase 89, Total Protein 7.4, Albumin 4.9, Globulin 2.5, Albumin/Globulin Ratio 2.0 H Orders (Tests/Meds): ED MEDICATIONS Generic Name Dose Route Start Last Admin Trade Name Freq PRN Reason Stop Dose Admin Lactated Ringer's 1,000 mls @ 999 mls/hr 06/15/23 21:10 06/15/23 21:20 Lactated Ringer's 1000 Ml Bag IV 06/15/23 22:10 999 mls/hr .Q1H1M ONE Administration Discontinued Medications Generic Name Dose Route Start Last Admin Trade Name Freq PRN Reason Stop Dose Admin Ondansetron HCl 4 mg 06/15/23 21:10 06/15/23 21:23 Ondansetron 4mg Odt SL 06/15/23 21:11 Not Given ONCE ONE Ondansetron HCl 4 mg 06/15/23 21:17 06/15/23 21:20 Ondansetron 4mg/2ml Vial IV 06/15/23 21:18 4 mg ONCE ONE Administration ORDERS Category Date Time Status CBC w/Auto Diff [Complete Blood Count Auto Diff] Stat Lab 06/15/23 20:00 Completed CMP [Comprehensive Metabolic Panel] Stat Lab 06/15/23 20:00 Completed Magnesium Stat Lab 06/15/23 20:00 Completed Phosphorous Stat Lab 06/15/23 20:00 Completed EKG Request [ECG Request] Stat Y 06/15/23 21:10 Ordered ECG Data Tracing #1: I reviewed this ECG and interpreted as documented below: Ventricular rate of 94 no acute ischemic changes no ST elevations d epressions T wave inversions to suggest acute ischemia normal axis no significant conduction abnormalities specifically to be concerned about in the setting of syncope or near syncope Critical Care <VALORIE Ryan - Last Filed: 06/15/23 22:19> Critical Care Time Critical Care Time: No
[2023-06-15] MEDS: ONDANSETRON 4MG/2ML VIAL 4 MG IV (21:20)
[2023-06-15] MEDS: LACTATED RINGERS 1000ML 1,000 ML 999 ML IV (21:20)
[2023-06-15 21:22] LABS: Basophils % 0.5 % (0.1-2.0); Eosinophils % 0.4 % (0.1-12.0); Hematocrit 46.1 % (42.0-52.0); Hemoglobin 15.5 g/dL (14.1-18.0); Lymphocytes # 2.3 K/mm3 (0.7-4.5); Lymphocytes % 29.1 % (10-50); Mean Corpuscular HGB Conc 33.7 g/dL (31.8-35.4); Mean Corpuscular Hemoglobin 32.6 pg (27.0-31.2); Mean Corpuscular Volume 96.9 fl (80-94); Mean Platelet Volume 8.4 fl (7.4-10.4); Monocytes # 0.3 K/mm3 (0.1-1.0); Monocytes % 3.7 % (1.7-9.3); Neutrophils # 5.3 K/mm3 (1.8-7.8); Neutrophils % 66.3 % (37.0-80.0); Platelet Count 277 K/mm3 (142-424); Red Blood Count 4.76 M/mm3 (4.60-6.20); Red Cell Distribution Width 12.9 % (11.5-17.5)
[2023-06-15 21:28] LABS: Alanine Aminotransferase 108 U/L (12-78); Albumin Level 4.9 g/dl (3.5-5.0); Alkaline Phosphatase 89 U/L (38-126); Anion Gap 11.6 mEq/L (5-15); Aspartate Amino Transferase 60 U/L (17-59); Blood Urea Nitrogen 8 mg/dl (9-20); Calcium 9.6 mg/dl (8.4-10.2); Carbon Dioxide 28 mmol/L (22.0-30.0); Chloride 104 mmol/L (98-107); Creatinine Clearance Estimated 111 mL/min (50-200); Estimated Glomerular Filt Rate 120 ml/min (>60); GFR (African American) 145 ML/MIN (>60); Globulin 2.5 g/dL (1.3-3.2); Glucose 112 mg/dl (74-100); Magnesium 1.7 mg/dl (1.6-2.3); Phosphorous 3.3 mg/dl (2.5-4.5); Potassium 3.6 mmoL/L (3.5-5.1); Sodium 140 mmol/L (136-145); Total Protein,Serum 7.4 g/dl (6.3-8.2)
--- NOTE | 2023-06-15 22:02 | ECG_ITS ---
APPROVED REPORT Exam: Resting ECG HR:94 bpm ECG Measurements Heart Rate 94 AXES OH 159 P 84 QRSd 81 QRS 90 QT 311 T 71 QTc 363 Conclusion SINUS RHYTHM NORMAL ECG UNCONFIRMED REPORT Electronically signed by : Howard Bucio MD 06/16/2023 19:03:16
== END 2023-06-15 22:30 | disposition home or self-care (01) ==
PROVIDERS: Physician Assistant; Emergency Provider Student in an Organized Health Care Education/Training Program; PCP Internal Medicine
DX: R42 Dizziness and giddiness (principal); R11.2 Nausea with vomiting, unspecified; F17.200 Nicotine dependence, unspecified, uncomplicated
CPT/HCPCS: 80053; 83735; 84100; 85025; 93005; 96361; 96374; 99285; J2405

== ENCOUNTER 2023-06-26 15:26 | Outpatient (CLI) | payer OTHER, SELFPAY | END 2023-06-26 23:59 | LOC: RT 15:27 | PROVIDERS: PCP Internal Medicine; Visit Provider Internal Medicine | DX: R55 Syncope and collapse (principal) | CPT/HCPCS: 93270 ==